=== PATIENT | male | born 1980 | race African-American/Black ===

== ENCOUNTER 2017-06-18 11:24 | Emergency (ER) | payer MEDICARE, MEDICAID | END 2017-06-18 13:28 | disposition home or self-care (01) | LOC: D.ER 11:24 | DX: S83.91XA Sprain of unspecified site of right knee, initial encounter (principal); W19.XXXA Unspecified fall, initial encounter; Y93.89 Activity, other specified; Y92.029 Unspecified place in mobile home as the place of occurrence of the external cause; F17.200 Nicotine dependence, unspecified, uncomplicated ==